=== PATIENT | female | born 1940 | race Caucasian/White ===

== ENCOUNTER 2022-03-15 07:34 | Outpatient (CLI) | payer MEDICARE, BC | END 2022-03-15 07:35 | disposition home or self-care (01) | LOC: NM 07:34 | PROVIDERS: ATTEND Internal Medicine Endocrinology, Diabetes & Metabolism | DX: E21.3 Hyperparathyroidism, unspecified (principal); E07.89 Other specified disorders of thyroid | CPT/HCPCS: 76536; 78072; A9500 ==